=== PATIENT | female | born 1975 | race Caucasian/White ===

== ENCOUNTER → 2021-06-23 | Outpatient (CLI) | payer OTHER ==
--- NOTE | 2021-06-23 15:24 | RAD ---
Plain film abdominal examination consisting of 2 view(s) of the abdomen. History: Abdominal pain Comparison: None. There is no bowel dilation. Gas is seen in the rectum, and the bowel gas pattern is non-obstructive. No organomegaly or abnormal calcifications are seen. The bony structures are unremarkable in appearance. Impression: 1. Unremarkable exam of the abdomen. Electronically signed by: Dallas Watt MD (06/23/2021 3:21 PM) [id number]
[2021-06-23 15:26] LABS: BASO # 0.1 x10^3/uL (0.0-0.2); BASO % 1 % (0-3); EOS # 0.1 x10^3/uL (0.0-0.7); EOS % 1 % (0-3); HEMATOCRIT 42.3 % (36.0-47.0); HEMOGLOBIN 14.4 g/dL (12.0-15.5); LYMPH # 2.6 x10^3/uL (1.0-4.8); LYMPH % 38 % (24-48); MEAN CORPUSCULAR HEMOGLOBIN 30 pg (25-35); MEAN CORPUSCULAR HGB CONC 34 g/dL (31-37); MEAN CORPUSCULAR VOLUME 89 fL (79-100); MONO # 0.5 x10^3/uL (0.0-1.1); MONO % 7 % (0-9); NEUT # 3.7 x10^3uL (1.8-7.7); NEUT % 53 % (31-73); PLATELET COUNT 189 x10^3/uL (140-400); RED BLOOD COUNT 4.74 x10^6/uL (3.50-5.40); RED CELL DISTRIBUTION WIDTH 12.5 % (11.5-14.5)
[2021-06-23 15:31] LABS: CALCIUM 8.4 mg/dL (8.5-10.1); CREATININE 0.9 mg/dL (0.6-1.0); GFR 67.4; POTASSIUM 3.9 mmol/L (3.5-5.1)
== END ==
LOC: RAD 14:52
PROVIDERS: ATTEND Specialist
DX: R10.9 Unspecified abdominal pain (principal)
CPT/HCPCS: 36415; 74018; 80048; 85025

== ENCOUNTER → 2021-06-24 | Outpatient (CLI) | payer OTHER ==
[~2021-06-24] MED LIST: IOHEXOL 300 MG/ML 75 ML VIAL. IV ONE
--- NOTE | 2021-06-24 13:07 | RAD ---
Axial CT of the abdomen and pelvis were obtained after the administration of intravenous contrast. Co jeremy and sagittal reformats are also available. Exposure: One or more of the following individualized dose reduction techniques were utilized for thi s examination: 1. Automated exposure control 2. Adjustment of the mA and/or kV according to patient size 3. Use of iterative reconstruction technique Indication: Left lower quadrant pain for a few months. Comparison: None. Findings: Lung bases are clear. The heart is unenlarged. Liver, gallbladder, spleen and pancreas adrenals and kidneys are unremarkable. Stomach, small and large bowel are nondistended. No evidence pathologic wall thickening. Patient stat us post hysterectomy. There is a cyst identified in the left adnexa measuring 2.5 cm. No free air-flu id. Radiologically significant retroperitoneal or mesenteric lymphadenopathy. The urinary bladder is nondistended. Abdominal aorta is nonaneurysmal. Portal, superior mesenteric and splenic veins are nor mal. Bony structures are unremarkable in appearance. IMPRESSION: 1. Small cyst in the left adnexa likely ovarian. Correlate with history of oophorectomy. Ultrasound c ould be performed on a nonemergent basis if patient is status post oophorectomy. Electronically signed by: Dallas Watt MD (06/24/2021 1:05 PM) [id number]
== END ==
LOC: CT 12:19
PROVIDERS: ATTEND Specialist
DX: N83.8 Other noninflammatory disorders of ovary, fallopian tube and broad ligament (principal); R10.32 Left lower quadrant pain
CPT/HCPCS: 74177; Q9967

== ENCOUNTER → 2021-06-30 | Outpatient (CLI) | payer OTHER ==
--- NOTE | 2021-06-30 11:34 | RAD ---
EXAM: Pelvic sonogram. HISTORY: Left adnexal cyst on CT. TECHNIQUE: Transabdominal and transvaginal sonographic imaging of the pelvis was performed. COMPARISON: CT dated 06/24/2021. FINDINGS: The uterus is surgically absent. The right ovary is obscured due to bowel gas. The left ova ry is normal in size and demonstrates normal blood flow. There is a 2.2 cm simple appearing dominant left ovarian follicle/follicular cyst. There is no pelvic free fluid. IMPRESSION: 1. 2.2 cm simple appearing dominant left ovarian follicle/follicular cyst, stable compared to the jumana or CT. 2. Obscured right ovary and surgically absent uterus. Electronically signed by: Melvi Price MD (06/30/2021 11:32 AM) [id number]
== END ==
LOC: US 10:40
PROVIDERS: ATTEND Specialist
DX: N83.202 Unspecified ovarian cyst, left side (principal); Z90.710 Acquired absence of both cervix and uterus
CPT/HCPCS: 76830; 76856

== ENCOUNTER → 2021-08-09 | Outpatient (CLI) | payer OTHER ==
--- NOTE | 2021-08-09 16:25 | RAD ---
EXAM: Left foot, 3 views. HISTORY: Pain. COMPARISON: None. FINDINGS: 3 views of the left foot are obtained. There is no acute fracture, dislocation or subluxati on. There are postoperative changes and fixation screws within the distal first metatarsal due to jumana or bunionectomy surgery. IMPRESSION: No acute osseous finding. Postoperative changes involving the first metatarsal. Electronically signed by: Melvi Price MD (08/09/2021 4:22 PM) [id number]
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
== END ==
LOC: US 15:42
PROVIDERS: ATTEND Specialist
DX: M79.672 Pain in left foot (principal)
CPT/HCPCS: 73630; 93971

== ENCOUNTER → 2022-04-07 | Outpatient (CLI) | payer OTHER ==
--- NOTE | 2022-04-07 11:32 | RAD ---
EXAM: Left foot, 3 views. HISTORY: Fall. Pain. COMPARISON: 08/09/2021 FINDINGS: 3 views of the left foot are obtained. There are postoperative changes involving the distal first metatarsal due to bunionectomy surgery. There is mild first metatarsal phalangeal joint spurri ng and subchondral sclerosis. There is no fracture, dislocation or subluxation. There is no radiodens e foreign body. IMPRESSION: Single postoperative changes involving the first metatarsal. No acute osseous finding. Electronically signed by: Melvi Price MD (04/07/2022 11:29 AM) [id number]
== END ==
LOC: RAD 10:46
PROVIDERS: ATTEND Specialist
DX: M77.52 Other enthesopathy of left foot and ankle (principal); M79.672 Pain in left foot; Z98.890 Other specified postprocedural states
CPT/HCPCS: 73630